=== PATIENT | male | born 1990 | race Caucasian/White ===

== ENCOUNTER 2024-10-11 11:09 | Outpatient (AMB) | payer OTHER, BC, SELFPAY ==
[2024-10-11 12:42] VITALS: BP 140/80; PULSE 78; O2SAT 98; BMI 49.1
--- NOTE | 2024-10-11 12:42 | AM.OFFWIN_ITS ---
Intake Vital Signs 10/11/24 12:42 Height 6 ft 3 in Weight 393 lb BMI 49.1 BP 140/80 H Blood Pressure Location Lt brachial Position Sitting Pulse 78 Pulse Source Pulse Oximeter Pulse Oximetry (%) 98 Oxygen Delivery Method Room Air Intake Visit Reasons: EP Pain on lower back Intake Note: Patient here for lower back pain while working yesterday. Patient Tobacco Use Status: Never used Tobacco Allergies No Known Allergies [No Known Allergies*] Allergy (Unverified 10/11/24 12:47) Do you need a note to return to daycare/school/sports/work: Yes HPI EP Pain on lower back HPI Details This note is constructed using voice recognition software. While every effort has been made to ensure accuracy, flash ranging crewmember errors may have been included. The patient is a 33 year old male who presents to the clinic today with right lower back pain since yesterday at work. 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 The pain radiates down his leg slightly. He reports he tried Tylenol which did not seem to help the pain. He has had back injury in the past, however they have been short duration, and not in the same area. He denies numbness and tingling in his feet, loss of control of bladder or bowel, or any additional injury.. [facility] Social History Patient Tobacco Use Status: Never used Tobacco Review of Systems Const All systems reviewed & are unremarkable except as noted in HPI and below Physical Exam Vital Signs: Last Vital Signs Pulse 78 10/11/24 12:42 BP 140/80 H 10/11/24 12:42 Pulse Ox 98 10/11/24 12:42 Oxygen Delivery Method Room Air 10/11/24 12:42 BMI result Body Mass Index 49.1 Const General: cooperative, healthy appearing, comfortable, no acute distress and well developed Orientation/consciousness: patient oriented x3 Limitations: no limitations Resp Effort & Inspection: normal respiratory effort and able to speak in complete sentences Back/Spine/Pelvis Other: Right sided sciatic notch tenderness. Positive SLR, negative well SLR. Normal lateral rotation and forward bend. No ecchymosis, edema, erythema. Skin General skin exam: no rashes or lesions noted Neuro General: patient oriented x3 Extrem General: Yes normal to inspection Assessment & Plan Assessment & Plan (1) Piriformis syndrome of right side: Code(s): G57.01 - Lesion of sciatic nerve, right lower limb Plan: Advised rest, ice/heat, muscle relaxers, NSAIDs, topical muscle rubs. Advised follow up with PCP as needed with worsening or failure to resolve. Plan See above for full details and plan. Medications: New ibuprofen 600 mg PO Q8H PRN 15 tabs 0RF pain cyclobenzaprine 1 to 2 orally 3 times a day PRN; 10 tabs 0RF muscle spasm Coding Level of Care Code Est Pt Level 3 (18569) Diagnoses Piriformis syndrome of right side G57.01
== END 2024-10-11 13:02 | disposition home or self-care (01) ==
PROVIDERS: PCP Internal Medicine; Visit Provider Registered Nurse
DX: G57.01 Lesion of sciatic nerve, right lower limb (principal)

== ENCOUNTER → 2024-10-11 11:09 | Outpatient (BNVA) | payer OTHER, SELFPAY | PROVIDERS: PCP Internal Medicine; Visit Provider Registered Nurse | DX: G57.01 Lesion of sciatic nerve, right lower limb (principal) | CPT/HCPCS: 99212 ==

== ENCOUNTER 2024-12-17 15:18 | Outpatient (AMB) | payer OTHER, BC, SELFPAY ==
[2024-12-17 16:12] VITALS: BP 142/90; PULSE 86; TEMP 36.7; O2SAT 98
--- NOTE | 2024-12-17 16:12 | AM.OFFWIN_ITS ---
Intake Vital Signs 12/17/24 16:12 Height 6 ft 3 in BP 142/90 H Blood Pressure Location Rt brachial Position Sitting Pulse 86 Pulse Source Pulse Oximeter Temp 98.1 F Temp Source Oral Pulse Oximetry (%) 98 Intake Visit Reasons: EP Fall at work, low back pain Patient Tobacco Use Status: Never used Tobacco Allergies No Known Allergies [No Known Allergies*] Allergy (Verified 12/17/24 16:12) Do you need a note to return to daycare/school/sports/work: Yes HPI HPI Comments History of Present Illness Details 34 y/o male patient who presents to the walk in clinic with c/o lower back pain after he suffered a fall at work. Pt reports he was walking and slid on Ice and landed on his Lower back. Reports pain with Bending and sitting. Denies numbness or tingling. [facility] Medical History (Updated 12/17/24 @ 16:24 by Kate Holt NP) Low back pain Social History Patient Tobacco Use Status: Never used Tobacco Review of Systems Const All systems reviewed & are unremarkable except as noted in HPI and below Physical Exam Vital Signs: Last Vital Signs Temp 98.1 F 12/17/24 16:12 Pulse 86 12/17/24 16:12 BP 142/90 H 12/17/24 16:12 Pulse Ox 98 12/17/24 16:12 Const General: cooperative and no acute distress Nutritional Appearance: obese morbidly obese Orientation/consciousness: patient oriented x3 General: Yes no CVA tenderness Back/Spine/Pelvis Back: no CVA tenderness and back tenderness Thoracic/Lumbar Spine: lumbar spinal tenderness Sacrum: no ecchymosis, no erythema, no swelling and tenderness midline Coccyx: Coccyx tenderness present on direct palpation Neuro General: patient oriented x3, gait normal and moves all extremities Assessment & Plan Assessment & Plan (1) Low back pain: Code(s): M54.50 - Low back pain, unspecified Qualifiers: Back pain laterality: midline Chronicity: acute Sciatica presence: without sciatica Qualified Code(s): M54.50 - Low back pain, unspecified Plan: Acetaminophen for pain relief Ice/Hot NSAID cream for pain relief. Medications: New diclofenac sodium 1% 4 grams topical BID 100 grams 0RF M54.50 - Low back pain, unspecified acetaminophen 1,000 mg (2 x 500 mg) PO Q6H PRN 30 caps 0RF pain M54.50 - Low back pain, unspecified Coding Level of Care Code Est Pt Level 4 (03535) Diagnoses Acute midline low back pain without sciatica M54.50 Back pain laterality: midline Chronicity: acute Sciatica presence: without sciatica Time Spent (min) 20
--- OUTSIDE RECORDS SUMMARY | 2024-12-17 17:33 | XMS_ITS | Clinical Summary ---
Author Organization [facility] ity Address [address] [place] [address] Care Team Providers Care Plastics Factory Worker Name Role Phone Elder Yap MD Primary Care Provider [phone] Surgical History Surgery Date Site/Laterality Comments APPENDECTOMY PROCEDURE:APPENDECTOMY;COMMENT:06/2017 Medical History Medical History Date Comments Pilonidal cyst DX:Pilonidal cys t Family History Medical History Relation Name Comments Clotting disorder Neg Hx Social History Tobacco Use Types Packs/Day Years Used Date Smoking Tobacco: Never Smokeless Tobacco: Never Alcohol Use Standard Drinks/Week Comments No 0 (1 standard drink = 0.6 oz pur e alcohol) Sex and Gender Information Value Date Recorded Sex Assigned at Not on file Legal Sex Male 1:24 AM EST Gender Identity Not on file Sexual Orientation Not on file Obstetrics History Plan of Treatment Health Maintenance Due Date Last Done Comments DTaP,Tdap,and Td Vaccines (1 - Tdap) 2011 Hepatitis B Vaccines (1 of 3 - 19+ 3-dose series) 2011 COVID-19 Vaccine (2023-2 5 season) 2024 Influenza Vaccine (#1) 2024 HIB Vaccines Aged Out No longer eligi ble based on patient's age to complete this topic HPV Vaccines Aged Out No longer eligi ble based on patient's age to complete this topic Hepatitis A Vaccines Aged Out No long er eligible based on patient's age to complete this topic IPV Vaccines Aged Out No longer eligi ble based on patient's age to complete this topic MMR Vaccines Aged Out No longer eligi ble based on patient's age to complete this topic Meningococcal ACWY Vaccine Aged Out N o longer eligible based on patient's age to complete this topic Meningococcal B Vacine Aged Out No lo nger eligible based on patient's age to complete this topic Pneumococcal Vaccine: Pediat rics (0 to 5 Years) and At-Risk Patients (6 to 64 Years) Aged Out No longer eligible b ased on patient's age to complete this topic RSV Immunization Patients Un ivania 20 months Aged Out No longer eligible b ased on patient's age to complete this topic Varicella Vaccines Aged Out No longer eligible based on patient's age to complete this topic Care Teams Plastics Factory Worker Relationship Specialty Start Date End Date Elder Yap MD PCP - General Wind Turbine Installer 04/30/16
--- OUTSIDE RECORDS SUMMARY | 2024-12-17 17:33 | XMS_ITS | Clinical Summary ---
Author Organization [facility] Address [address] [place] [address] Care Team Providers Care Electric Range Assembler Name Role Phone Elder Yap MD Primary Care Provider [phone] Allergies No known active allergies Medications No known medications Immunizations Name Administration Dates Next Due COVID-19, mRNA (Moderna Pre Fall 2022) Monovalent, 100 mcg/0.5 ml or 50 mcg/0.25 ml dose 08/07/2021,07/10/2021 Influenza,recombinant,quad,injectable,Prsrv Fr 1 11/10/2021 Influenza,recombinant,trivalent,PF(Flublok) 08/24 Social History Tobacco Use Types Packs/Day Years Used Date Smoking Tobacco: Never Assessed Sex and Gender Information Value Date Recorded Sex Assigned at Not on file Legal Sex Male 9:12 AM EDT Gender Identity Not on file Sexual Orientation Not on file Last Filed Vital Signs Vital Sign Reading Time Taken Comments Blood Pressure 154/91 07/25/2023 9:34 AM EDT Pulse 55 07/25/2023 9:34 AM EDT Temperature 36.6 ??C (97.8 ??F) 07/25/2023 9:33 AM ED T Respiratory Rate - - Oxygen Saturation 96% 07/25/2023 9:33 AM EDT Inhaled Oxygen Concentration - - Weight - - Height - - Body Mass Index - - Plan of Treatment Health Maintenance Due Date Last Done Comments Hepatitis C Screening 1992 DTaP/Tdap/Td (1 - Tdap) 2010 Hep B (1 of - 19+ 3-dose series) 2011 COVID-19 Vaccine (2023-2 5 season) 2024 08/07/2021, 07/10/2021 Influenza (#1) 2024 09/10/2022, 09/10/2021 Zoster (Shingrix) (1 of 2) 2042 HPV Vaccine Aged Out No longer eligi ble based on patient's age to complete this topic Hep A Aged Out No longer eligi ble based on patient's age to complete this topic Hib Aged Out No longer eligi ble based on patient's age to complete this topic Meningococcal ACWY Aged Out No longer eligible based on patient's age to complete this topic Pneumococcal Aged Out No longer eligi ble based on patient's age to complete this topic Insurance [facility] [facility] PPO Care Teams Electric Range Assembler Relationship Specialty Start Date [place] [address] PCP - General Internal Medicine 07/25/23
--- OUTSIDE RECORDS SUMMARY | 2024-12-17 17:33 | XMS_ITS | Clinical Summary ---
Author Organization [facility] Address [address] [place] [address] Care Team Providers Care Button Puncher Name Role Phone Unavailable Primary Care Provider Unavailabl e Source Comments Please note that some or all of the patient's information could have additional privacy protections. State laws allow health care providers to render certain types of treatment to minors without parental consent. Please do not assume that this information can be shared solely by obtaining just the consent of the patient's parent/guardian. Please determine if all or part of the patient's care was rendered without parent/guardian involvement. And, if so, obtain the minor's consent prior to disclosure.[facility] Social History Tobacco Use Types Packs/Day Years Used Date Smoking Tobacco: Never Assessed Sex and Gender Information Value Date Recorded Sex Assigned at Not on file Legal Sex Male 2:27 AM EST Gender Identity Not on file Sexual Orientation Not on file Plan of Treatment Not on file
--- OUTSIDE RECORDS SUMMARY | 2024-12-17 17:33 | XMS_ITS | Clinical Summary ---
Author Organization [facility] Address [address] [place] [address] Care Team Providers Care Head Of Sales Name Role Phone Elder Gallego MD Primary Care Provider [phone] Allergies No known active allergies Medications Medication Sig Dispensed Refills Start Date End Date Status sulfamethoxazole-t rimethoprim (BACTRIM DS,SEPTRA DS) 800-160 MG per tablet Take 1 tablet (160 mg of trimethoprim total) by mouth 2 (two) times a day. 20 tablet 0 12/06/2018 Active Family History Medical History Relation Name Comments Clotting disorder Neg Hx Social History Tobacco Use Types Packs/Day Years Used Date Smoking Tobacco: Never Smokeless Tobacco: Never Alcohol Use Standard Drinks/Week Comments No 0 (1 standard drink = 0.6 oz pur e alcohol) Sex and Gender Information Value Date Recorded Sex Assigned at Male 12/06/2018 11:21 PM EST Gender Identity Male 12/06/2018 11:21 PM EST Sexual Orientation Not on file Last Filed Vital Signs Vital Sign Reading Time Taken Comments Blood Pressure 133/90 12/06/2018 11:19 PM EST Pulse 89 12/06/2018 11:19 PM EST Temperature 36.6 ??C (97.9 ??F) 12/06/2018 11:[address] Respiratory Rate 18 12/06/2018 11:19 PM EST Oxygen Saturation 96% 12/06/2018 11:19 PM EST Inhaled Oxygen Concentration - - Weight 154.2 kg (340 lb) 12/06/2018 11:19 PM EST Height 190.5 cm (6' 3 ) 12/06/2018 11:19 PM EST Body Mass Index 42.5 12/06/2018 11:19 PM EST Plan of Treatment Not on file Care Teams Head Of Sales Relationship Specialty Start Date End Date Elder Gallego MD [address] [facility] [address] [place] [address] PCP - General Calciner Operator 04/30/16
--- OUTSIDE RECORDS SUMMARY | 2024-12-17 17:33 | XMS_ITS | Clinical Summary ---
Author Organization [facility] Address [address] [place] [address] Care Team Providers Care Embedded Linux Engineer Name Role Phone Unavailable Primary Care Provider Unavailabl e Social History Tobacco Use Types Packs/Day Years Used Date Smoking Tobacco: Never Assessed Sex and Gender Information Value Date Recorded Sex Assigned at Not on file Gender Identity Not on file Sexual Orientation Not on file Plan of Treatment Health Maintenance Due Date Last Done Comments Hepatitis C Virus Screening 1992 HIV Screening 2005 DTaP/Tdap/Td Vaccines (1 - Tdap) 2011 Hepatitis B Vaccines (1 of 3 - 19+ 3-dose series) 2011 COVID-19 Vaccine (2023-2 5 season) 2024 HPV Vaccines Aged Out No longer eligi ble based on patient's age to complete this topic Pneumococcal Vaccine: Pediat octavia (0-5 Years) and At-Risk Patients (6 to 49 Years) Aged Out No longer eligible b ased on patient's age to complete this topic
== END 2024-12-17 16:36 | disposition home or self-care (01) ==
PROVIDERS: PCP Internal Medicine; Visit Provider Nurse Practitioner Family
DX: M54.50 Low back pain, unspecified (principal)

== ENCOUNTER → 2024-12-17 15:18 | Outpatient (BNVA) | payer OTHER, BC, SELFPAY | PROVIDERS: PCP Internal Medicine | DX: M54.50 Low back pain, unspecified (principal); Z91.81 History of falling | CPT/HCPCS: 99212 ==

== ENCOUNTER 2025-03-04 08:36 | Outpatient (REF) | payer BC, OTHER, SELFPAY ==
--- NOTE | ~2025-03-04 | XR_ITS ---
EXAMINATION: XR CHEST 2 VIEWS HISTORY: R05.9 - Cough, unspecified COMPARISON: There are no prior studies for comparison. FINDINGS: PA and lateral views of the chest are submitted. There are low lung volumes. The lungs are clear. There is no pleural effusion, pneumothorax, or pulmonary vascular congestion. The heart is normal in size. The bones are intact. XR/XR chest 2V IMPRESSION: Low lung volumes. The lungs are clear. Electronically signed by: Jose Mujica MD 03/04/2025 09:49 AM EDT
--- OUTSIDE RECORDS SUMMARY | 2025-03-04 09:23 | XMS_ITS | Clinical Summary ---
Author Organization [facility] Address [address] [place] [address] Care Team Providers Care Sheep Herder Name Role Phone Elder Yap MD Primary Care Provider [phone] Allergies No known active allergies Medications No [...] patient's age to complete this topic Insurance [employer] [facility] PPO Care Teams Sheep Herder Relationship Specialty Start Date [place] [address] PCP - General Internal Medicine 07/25/23
--- OUTSIDE RECORDS SUMMARY | 2025-03-04 09:23 | XMS_ITS | Clinical Summary ---
Author Organization [facility] Address [address] [place] [address] Care Team Providers Care Elevator Erector Name Role Phone Unavailable Primary Care Provider [...]
--- OUTSIDE RECORDS SUMMARY | 2025-03-04 09:23 | XMS_ITS | Clinical Summary ---
Author Organization [facility] Address [address] [place] [address] Care Team Providers Care Project Estimator Name Role Phone Elder Gallego MD Primary Care Provider [phone] Allergies No known active allergies Medications Medication [...] of Treatment Not on file Care Teams Project Estimator Relationship Specialty Start Date End Date Elder Gallego MD [address] [facility] [address] [place] [address] PCP - General Collar Trimmer 04/30/16
--- OUTSIDE RECORDS SUMMARY | 2025-03-04 09:23 | XMS_ITS | Clinical Summary ---
Author Organization [facility] ity Address [address] [place] [address] Care Team Providers Care Steel Erector Name Role Phone Elder Yap MD Primary Care Provider [phone] Surgical History Surgery Date Site/Laterality Comments APPENDECTOMY [...] age to complete this topic Care Teams Steel Erector Relationship Specialty Start Date End Date Elder Yap MD PCP - General Interior Design Instructor 04/30/16
[2025-03-04 11:04] LABS: Influenza A PCR NEGATIVE (Negative); Influenza B PCR NEGATIVE (Negative); Resp Syncy Virus RNA Qual PCR NEGATIVE (Negative); SARS COV2 PCR INHOUSE NEGATIVE (Negative)
== END 2025-03-04 08:37 | disposition home or self-care (01) ==
LOC: HO.LAB 08:36
PROVIDERS: PCP Internal Medicine; Visit Provider Physician Assistant
DX: R05.9 Cough, unspecified (principal); R09.89 Other specified symptoms and signs involving the circulatory and respiratory systems; J22 Unspecified acute lower respiratory infection
CPT/HCPCS: 0241U; 71046

== ENCOUNTER 2025-03-04 08:36 | Outpatient (AMB) | payer BC, SELFPAY ==
--- OUTSIDE RECORDS SUMMARY | 2025-03-04 08:41 | XMS_ITS | Clinical Summary ---
Author Organization [facility] Address [address] [place] [address] Care Team Providers Care Auto Crane Driver Name Role Phone Unavailable Primary Care Provider Unavailabl e Social History Tobacco Use Types Packs/Day Years Used Date Smoking Tobacco: Never Assessed Sex and Gender Information Value Date Recorded Sex Assigned at Not on file Legal Sex Male 4:14 PM EDT Gender Identity Not on file Sexual [...]
--- OUTSIDE RECORDS SUMMARY | 2025-03-04 08:41 | XMS_ITS | Clinical Summary ---
Author Organization [facility] ity Address [address] [place] [address] Care Team Providers Care Plasma Table Operator Name Role Phone Elder Yap MD Primary Care Provider [phone] Surgical History Surgery Date Site/Laterality Comments APPENDECTOMY [...] Vaccine (2023-2 5 season) 2024 Influenza Vaccine (Season Ended) 2025 HIB Vaccines Aged Out No longer eligi [...] age to complete this topic Meningococcal B Vaccine Aged Out No l onger eligible based on patient's age to complete [...] age to complete this topic Care Teams Plasma Table Operator Relationship Specialty Start Date End Date Elder Yap MD PCP - General Stock Handler Floorperson 04/30/16
--- OUTSIDE RECORDS SUMMARY | 2025-03-04 08:41 | XMS_ITS | Clinical Summary ---
Author Organization [facility] Address [address] [place] [address] Care Team Providers Care Manager Editorial Name Role Phone Elder Yap MD Primary Care Provider [phone] Allergies No known active allergies Medications No [...] Tdap) 2010 Hep B (1 of - + 3-dose series) 2011 COVID-19 Vaccine (2023-2 5 [...] patient's age to complete this topic Insurance [employer] [facility] PPO Care Teams Manager Editorial Relationship Specialty Start [place] [address] PCP - General Internal Medicine 07/25/23
--- OUTSIDE RECORDS SUMMARY | 2025-03-04 08:41 | XMS_ITS ---
[facility] Name [facility] Care Team Organization Name Specialty Phone Email Start Date End Da te [facility] Primary Care 04/17/[address] [facility] Primary Care 04/15/2024
--- OUTSIDE RECORDS SUMMARY | 2025-03-04 08:41 | XMS_ITS | Clinical Summary ---
Author Organization [facility] Address [address] [place] [address] Care Team Providers Care Carton Forming Machine Adjuster Name Role Phone Elder Gallego MD Primary Care Provider [phone] Allergies No known active allergies Medications Medication [...] of Treatment Not on file Care Teams Carton Forming Machine Adjuster Relationship Specialty Start Date End Date Elder Gallego MD [address] [facility] [address] [place] [address] PCP - General Wheel Of Fortune Dealer 04/30/16
--- NOTE | 2025-03-04 08:49 | AM.OFFWIN_ITS ---
Intake Vital Signs 03/04/25 08:50 Height 6 ft 3 in Weight 390 lb BMI 48.7 BP 122/80 Blood Pressure Location Rt brachial Position Sitting Pulse 77 Pulse Source Pulse Oximeter Temp 97.9 F Temp Source Oral Pulse Oximetry (%) 95 Oxygen Delivery Method Room Air Intake Visit Reasons: EP Crackling in chest, sob, cough Intake Note: Patient here for crackling in chest, SOB and cough that started tuesday. Patient Tobacco Use Status: Never used Tobacco Allergies No Known Allergies [No Known Allergies*] Allergy (Verified 03/04/25 08:53) Do you need a note to return to daycare/school/sports/work: No HPI HPI Comments History of Present Illness Details History - The patient is a 34-year-old male pres enting with shortness of breath and chest congestion. - Symptoms began on the past Tuesday mo rning and include wheezing, which the patient noted particularly exasperates during exhalation. - The patient denies any previous respir atory conditions such as asthma or COPD and reports being a non-smoker. - There was a report of ear discomfort t he day before, and feverish feelings the previous night. - No head congestion, sinus pain, or sor e throat was noted. - Symptoms have led to fatigue and the p atient has experienced minimal relief from previously used medications. - The patient does not have any current sick contacts, however, indicates a household member was previously ill. Physical Exam General: Cooperative, healthy appearing, comfortable and no acute distress Orientation/consciousness: Patient oriented x3 Limitations: No limitations Head: Normal to inspection Ears: Hearing grossly normal bilaterally, external ears normal and TM's normal bilaterally Nose: Normal external nose present, Normal nares present and No nasal discharge present Face and sinus: Normal facial exam and Yes sinuses nontender Mouth: Normal oral and palatal mucosa present and moist mucous membranes Throat: Yes tonsils normal, Yes uvula midline. Posterior oropharynx erythema, no exudates Eyes: Appearance normal, both eyes and all related structures Neck: Normal visual inspection Respiratory: exp wheezes and rhonchi bilaterally. Normal respiratory effort, able to speak in complete sentences, Actively coughing, no respiratory distress, not tachypneic, no tripod positioning and no use of accessory muscles. Cardiovascular: Regular rate and rhythm. Normal S1 and S2 Skin: No rashes or lesions noted Neuro: Patient oriented x3 Extremities: Normal to inspection and Yes no clubbing, cyanosis or edema [facility] Medical History (Updated 03/04/25 @ 09:21 by Marcelle Galicia PA-C) Low back pain Social History Patient Tobacco Use Status: Never used Tobacco Physical Exam Vital Signs: Last Vital Signs Temp 97.9 F 03/04/25 08:50 Pulse 77 03/04/25 08:50 BP 122/80 03/04/25 08:50 Pulse Ox 95 03/04/25 08:50 Oxygen Delivery Method Room Air 03/04/25 08:50 BMI result Body Mass Index 48.7 Assessment & Plan Assessment & Plan (1) Lower respiratory infection (e.g., bronchitis, pneumonia, pneumonitis, pulmonitis): Code(s): J22 - Unspecified acute lower respiratory infection Plan: O2 95% on RA, otherwise VSS, pt well appearing and PE unremarkable. The patient was informed that symptoms are suggestive of an acute viral respiratory infection. Prednisone at 40 mg once daily in the morning was prescribed to help reduce respiratory inflammation, with caution given regarding its potential to disrupt sleep if taken at night. Tessalon Perles benzonatate was advised to be taken prior to bedtime to suppress coughing, and an oepd-oow-kttkgiw decongestan t and antihistamine such as Anahi D or Mucinex is recommended to assist with managing additional symptoms. A chest X-ray was ordered to assess for pneumonia, with immediate access provided. Arrangements were made for the patient to receive results from X-ray and viral tests by phone. The patient was instructed to be vigilant about symptom changes and to seek emergency care if breathing difficulties worsen. Patient was informed and verbally consented to the use of an ambient scribe for clinic note documentation during this visit Orders: Orders SARS-CoV2/FLU/RSV Today R09.89 - Other specified symptoms and signs involving the circulatory and respiratory systems XR chest 2V Today R05.9 - Cough, unspecified Medications: New prednisone 40 mg (2 x 20 mg) PO QAM 10 tabs 0RF benzonatate 200 mg PO BEDTIME PRN 10 caps 0RF cough Coding Level of Care Code New Pt Level 4 (65405) Diagnoses Lower respiratory infection (e.g., bronchitis, pneumonia, pneumonitis, pulmonitis) J22
[2025-03-04 08:50] VITALS: BP 122/80; PULSE 77; TEMP 36.6; O2SAT 95; BMI 48.7
== END 2025-03-04 10:20 | disposition home or self-care (01) ==
PROVIDERS: PCP Internal Medicine; Visit Provider Physician Assistant
DX: J22 Unspecified acute lower respiratory infection (principal)

== ENCOUNTER → 2025-03-04 09:23 | Outpatient (BNV) | payer BC, SELFPAY | PROVIDERS: PCP Internal Medicine; Visit Provider Radiology Diagnostic Radiology | DX: J98.4 Other disorders of lung (principal) | CPT/HCPCS: 71046 ==